=== PATIENT | female | born 1965 | race Caucasian/White ===

== ENCOUNTER 2017-10-08 15:02 | Outpatient (CLI) | payer BC | END 2017-10-08 15:03 | disposition home or self-care (01) | LOC: BICMAMMO 15:02 | PROVIDERS: ATTEND Internal Medicine | DX: Z12.31 Encounter for screening mammogram for malignant neoplasm of breast (principal) | CPT/HCPCS: 77063; 77067 ==

== ENCOUNTER 2021-10-01 07:57 | Outpatient (CLI) | payer BC ==
[2021-10-01 17:50] LABS: SARS-CoV-2 PCR by NAA DETECTED (NotDetected)
== END 2021-10-01 07:58 | disposition home or self-care (01) ==
LOC: LABBT 07:57
PROVIDERS: ATTEND Orthopaedic Surgery
DX: U07.1 COVID-19 (principal); Z01.812 Encounter for preprocedural laboratory examination; M54.50 Low back pain, unspecified; M21.372 Foot drop, left foot
CPT/HCPCS: U0003; U0005